=== PATIENT | male | born 1945 | race Caucasian/White ===

== ENCOUNTER 2017-06-30 23:17 | Emergency (ER) | payer BC, OTHER ==
--- NOTE | 2017-06-30 23:53 | RAD ---
CHEST PA AND LATERAL: 06/30/17 HISTORY: 71-year-old male with history of cough, head cold and chest congestion. COMPARISON: 10/10/09. FINDINGS: Evidence for moderate sized hiatal hernia. Heart size is within normal limits. Atherosclerosis of the aorta. No confluent pneumonia, overt edema or pleural effusion. Bilateral shoulder surgery. IMPRESSION: Moderate sized hiatal hernia. No acute intrathoracic disease. Stable appearance from prior study. POS: [facility]
[2017-07-01] MEDS ORDERED: Dexamethasone 10 MG/ML VIAL ONE (00:02)
[2017-07-01] MEDS ORDERED: Lidocaine 1% PF 5 ML VIAL ONE (00:02)
[2017-07-01] MEDS ORDERED: cefTRIAXone\\ROCEPHIN 500 MG VIAL ONE (00:02)
== END 2017-07-01 01:04 | disposition home or self-care (01) ==
LOC: ERS 23:17
DX: J20.9 Acute bronchitis, unspecified (principal); I10 Essential (primary) hypertension; Z79.899 Other long term (current) drug therapy
CPT/HCPCS: 71046; 94640; 96372; J0696; J1100; J2001; J7620